=== PATIENT | male | born 1985 | race Caucasian/White ===

== ENCOUNTER 2021-09-04 18:11 | Emergency (ER) | payer OTHER ==
[~2021-09-04 18:11] MED LIST: BACTRIM DS TAB1 EACH PO; BACTROBAN CREAM15 GM TOP; BACTROBAN OINT22 GM EXT; DOXYCYCLINE HY100 MG PO; ECOTRIN81 MG PO; IBUPROFEN600 MG PO; KEFLEX500 MG PO; MIRALAX 119 GR119 GM GT; VIBRAMYCIN100 MG PO
[2021-09-04 19:34] LABS: HEMOGLOBIN 13.4 gm/dl (14.0-17.5); RED BLOOD COUNT 4.26 M/UL (4.20-5.50); WHITE BLOOD COUNT 8.4 K/UL (4.5-11.0)
[2021-09-04 19:42] LABS: BUN/CREATININE RATIO 11 (0-10)
[2021-09-04] MEDS ORDERED: CEPHALEXIN500 M1 PO (19:54)
== END 2021-09-04 20:58 | disposition home or self-care (01) ==
LOC: ER1 18:11
PROVIDERS: Nurse Practitioner
DX: L03.116 Cellulitis of left lower limb (principal)
CPT/HCPCS: 73630; 80053; 83605; 85025; 85652; 86140; 87040; 99283